=== PATIENT | female | born 1955 | race Two or more races ===

== ENCOUNTER 2019-05-22 08:26 | Inpatient (IN) | payer MEDICAID ==
[~2019-05-22] VITALS: Ht 157.5 cm; Wt 73.2 kg
[2019-05-22] MEDS ORDERED: ASPIRIN 81MG TABLET PO ONE (11:00)
[2019-05-22] MEDS: NITROGLYCERIN 0.4MG TABLET SL SL PRN ×2 (11:13→11:24)
[2019-05-22 11:24] LABS: BASOPHILS % 0.7 % (0.0-2.0); EOSINOPHILS % 2.7 % (0.0-5.0); HEMATOCRIT. 38.7 % (36.0-48.0); HEMOGLOBIN. 13.2 g/dL (12.0-16.0); LYMPHOCYTES % 22.6 % (20.0-50.0); MEAN CORPUSCULAR HEMOGLOBIN 31.7 pg (28.0-32.0); MEAN CORPUSCULAR VOLUME 92.8 fL (81.0-99.0); MEAN PLATELET VOLUME 8.5 fl (7.4-10.4); MONOCYTES % 6.9 % (2.0-8.0); NEUTROPHILS % 67.1 % (40.0-76.0); PLATELET 254 x1000/uL (130-400); RED BLOOD CELL COUNT 4.17 mill/uL (4.2-5.4); RED CELL DISTRIBUTION WIDTH 12.5 % (11.6-14.6)
[2019-05-22 11:31] LABS: CHLORIDE 106 mEq/L (98-107)
[2019-05-22] MEDS ORDERED: HYDROCODONE/ACETAMINOPHEN 5/325MG TABLET PO ONE (12:00)
[2019-05-22] MEDS ORDERED: NA PHOS,M-B/NA PHOS,DI-BA ENEMA 118ML PR PRN (13:30)
[2019-05-22] MEDS ORDERED: GUAIFENESIN 200MG/10ML SUGAR FREE UDC PO PRN (13:30)
[2019-05-22] MEDS ORDERED: CLONIDINE 0.1MG TABLET PO PRN (13:30)
[2019-05-22] MEDS ORDERED: MAGNESIUM/ALUMINUM HYDROXIDE/SIMETHICONE 30ML UDC PO PRN (13:30)
[2019-05-22] MEDS ORDERED: MORPHINE SULFATE 2 MG/ML CPJ (NOT FOR IM USE) IV PRN (13:30)
[2019-05-22] MEDS ORDERED: DOCUSATE SODIUM 100MG CAPSULE PO PRN (13:30)
[2019-05-22] MEDS ORDERED: ONDANSETRON HCL 4MG/2ML INJ IV PRN (13:30)
[2019-05-22] MEDS ORDERED: HYDROCODONE/ACETAMINOPHEN 5/325MG TABLET PO PRN (13:30)
[2019-05-22] MEDS ORDERED: DIPHENHYDRAMINE 50MG/ML VIAL IV PRN (13:30)
[2019-05-22] MEDS ORDERED: IPRATROPIUM/ALBUTEROL 0.5-3(2.5)MG/3ML NEB NEB PRN (13:30)
[2019-05-22] MEDS ORDERED: ACETAMINOPHEN 325MG TABLET PO PRN (13:30)
[2019-05-22] MEDS ORDERED: LORAZEPAM 2MG/ML CPJ IV PRN (13:30)
[2019-05-22 14:58] LABS: CHLORIDE 107 mEq/L (98-107)
[2019-05-22 23:40] VITALS: BP 137/56
[2019-05-23 00:23] VITALS: BP 137/56
[2019-05-23] MEDS ORDERED: LISI40TA4 PO (00:31)
[2019-05-23 04:00] VITALS: BP 116/56
[2019-05-23 07:32] LABS: CHLORIDE 105 mEq/L (98-107)
[2019-05-23 07:50] LABS: LDL CHOLESTEROL 164 mg/dL (5-100); T4 FREE 1.12 ng/dL (0.76-1.46)
[2019-05-23 07:51] LABS: HDL CHOLESTEROL 58 mg/dL (40-59)
[2019-05-23 07:55] LABS: BASOPHILS % 0.6 % (0.0-2.0); EOSINOPHILS % 4.2 % (0.0-5.0); HEMATOCRIT. 40.1 % (36.0-48.0); HEMOGLOBIN. 13.6 g/dL (12.0-16.0); LYMPHOCYTES % 33.4 % (20.0-50.0); MEAN CORPUSCULAR HEMOGLOBIN 32.1 pg (28.0-32.0); MEAN CORPUSCULAR VOLUME 94.1 fL (81.0-99.0); MEAN PLATELET VOLUME 8.8 fl (7.4-10.4); MONOCYTES % 7.6 % (2.0-8.0); NEUTROPHILS % 54.2 % (40.0-76.0); PLATELET 289 x1000/uL (130-400); RED BLOOD CELL COUNT 4.26 mill/uL (4.2-5.4)
[2019-05-23 08:00] VITALS: BP 114/50
[2019-05-23] MEDS: ENOXAPARIN 40MG/0.4ML SYR SUBCUT SCH ×2 (08:54→10:30)
[2019-05-23] MEDS: ASPIRIN 81MG EC TABLET PO SCH ×2 (08:54→10:29)
[2019-05-23] MEDS ORDERED: REGADENOSON 0.4 MG/5 ML IV SCH (09:00)
[2019-05-23] MEDS ORDERED: REGADENOSON 0.4 MG/5 ML IV ONE (09:13)
[2019-05-23] MEDS ORDERED: INFLUENZA VIRUS VACCINE(AFLURIA) 0.5ML SYR IM ONE (12:00)
[2019-05-23 12:28] VITALS: BP 115/56
[2019-05-23 13:00] VITALS: BP 145/63
== END 2019-05-23 15:00 | disposition home or self-care (01) | DRG 243 ==
LOC: ER 08:26 → 6WST 13:04 → ENRESERV 21:39
PROVIDERS: ADMIT Internal Medicine; ATTEND Internal Medicine
DX: K21.9 Gastro-esophageal reflux disease without esophagitis (principal); I10 Essential (primary) hypertension; Z82.49 Family history of ischemic heart disease and other diseases of the circulatory system; Z79.899 Other long term (current) drug therapy
CPT/HCPCS: 36415; 71045; 78452; 80048; 80053; 80061; 83880; 84439; 84443; 84484; 85025; 93005; 93017; 93306; 99285; A9500; J1650; J2270; J2405; J2785

== ENCOUNTER 2021-01-17 00:03 | Emergency (ER) | payer BC, OTHER ==
[~2021-01-17] VITALS: Ht 160 cm; Wt 81.0 kg
[~2021-01-17 00:03] MED LIST: LISI40TA13 PO
[2021-01-17 02:57] LABS: BASOPHILS % 0.7 % (0.0-2.0); EOSINOPHILS % 2.3 % (0.0-5.0); HEMATOCRIT. 37.6 % (36.0-48.0); HEMOGLOBIN. 12.7 g/dL (12.0-16.0); LYMPHOCYTES % 12.2 % (20.0-50.0); MEAN CORPUSCULAR HEMOGLOBIN 31.2 pg (28.0-32.0); MEAN CORPUSCULAR VOLUME 92.6 fL (81.0-99.0); MEAN PLATELET VOLUME 8.6 fl (7.4-10.4); MONOCYTES % 5.5 % (2.0-8.0); NEUTROPHILS % 79.3 % (40.0-76.0); PLATELET 235 x1000/uL (130-400); RED BLOOD CELL COUNT 4.06 mill/uL (4.2-5.4); RED CELL DISTRIBUTION WIDTH 12.9 % (11.6-14.6)
[2021-01-17 03:05] LABS: CHLORIDE 105 mEq/L (98-107)
[2021-01-17 03:13] LABS: CLARITY URINE CLOUDY (CLEAR); COLOR URINE RED (YELLOW); KETONES URINE NEGATIVE (NEGATIVE); LEUKOCYTE ESTERASE URINE 3+ (NEGATIVE); NITRITE URINE NEGATIVE (NEGATIVE); OCCULT BLOOD URINE 3+ (NEGATIVE); PROTEIN URINE 2+ (NEGATIVE); SPECIFIC GRAVITY URINE 1.006 (1.005-1.030); UROBILINOGEN URINE 0.2 E.U./dL (0.2-1.0)
[2021-01-17] MEDS ORDERED: CIPR-263 MT (04:42)
[2021-01-17] MEDS ORDERED: PHEN-815 MT (04:43)
[2021-01-17] MEDS ORDERED: PHENAZOPYRIDINE HCL 100MG TABLET PO SCH (05:00)
[2021-01-17 05:15] VITALS: BP 147/70
== END 2021-01-17 05:20 | disposition home or self-care (01) ==
LOC: ER 00:03
DX: N12 Tubulo-interstitial nephritis, not specified as acute or chronic (principal); R10.30 Lower abdominal pain, unspecified; I10 Essential (primary) hypertension
CPT/HCPCS: 36415; 80053; 81003; 85025; 99283